=== PATIENT | male | born 1955 | race Caucasian/White ===

== ENCOUNTER → 2024-12-20 | Outpatient (CLI) | payer MEDICARE, BC ==
[2024-12-20 12:26] LABS: Stool Occult Bld Immuno 1 Negative (NEGATIVE)
== END | disposition home or self-care (01) ==
LOC: LAB SHORT 09:36 → LAB 09:36
PROVIDERS: Internal Medicine
DX: D50.9 Iron deficiency anemia, unspecified (principal)
CPT/HCPCS: 82274

== ENCOUNTER 2025-01-03 11:07 | Day surgery (SDC) | payer MEDICARE, BC ==
[~2025-01-03] VITALS: Ht 190.5 cm; Wt 106.0 kg
[2025-01-03] MEDS ORDERED: ALBU90OI INH (11:46)
[2025-01-03] MEDS ORDERED: AMLO5 PO (11:46)
[2025-01-03] MEDS ORDERED: ATOR40TA PO (11:49)
[2025-01-03] MEDS ORDERED: AZELASTINE137 MCG/01 (11:49)
[2025-01-03] MEDS ORDERED: ERGO50000 (11:50)
[2025-01-03] MEDS ORDERED: LOSA50 PO (11:50)
[2025-01-03] MEDS ORDERED: DOXY100 PO (11:50)
[2025-01-03] MEDS ORDERED: OZEMPIC1 MG/0.72 SC (11:51)
[2025-01-03] MEDS ORDERED: PRESERVISION A1 EAC5 PO (11:51)
[2025-01-03 12:03] VITALS: BP 158/95
[2025-01-03] MEDS ORDERED: Midazolam HCl 1MG / ML 2ML Vial ONE ×2 (12:38→13:16)
[2025-01-03] MEDS ORDERED: NS 1,000 ML IV ONE (12:38)
[2025-01-03] MEDS ORDERED: FentaNYL Citrate 50 MCG/ML 2 ML Injection ONE ×2 (12:38→13:16)
[2025-01-03] MEDS ORDERED: NS 250 ML IV ONE (12:47)
--- NOTE | 2025-01-03 14:03 | NUR ---
PT ARRIVED BACK TO RECOVERY ROOM IN [facility]CLINER. LEFT FLANT NEPHTUBE SITE SOFT NO BLEEDING WITH INTACT DRESSING AND DRAIN TUBE TO GRAVITY BAG. PT'S IN ROOM CALL LIGHT IN REACH. PT DRINKING TEA.
--- NOTE | 2025-01-03 14:48 | NUR ---
NO CHANGES TO L FLANK NEPHTUBE SITE. DRAINED TO GRAVITY BAG PINK-TINGED URINE. DISCHARGE INSTRUCTIONS REVIEWED ALL QUESTIONS ANSWERED. 20 G IV DISCONTINUED FROM R FA WITH INTACT CANNULA. PT ESCORTED OUT VIA WHEELCHAIR ESCORT.
== END 2025-01-03 15:00 | disposition home or self-care (01) ==
LOC: MHTC 11:07
DX: N13.2 Hydronephrosis with renal and ureteral calculous obstruction (principal); I10 Essential (primary) hypertension; E78.5 Hyperlipidemia, unspecified; E11.40 Type 2 diabetes mellitus with diabetic neuropathy, unspecified; Z79.899 Other long term (current) drug therapy; Z88.0 Allergy status to penicillin; Z98.84 Bariatric surgery status
CPT/HCPCS: 50432; 76937; 99152; 99153; C1729; C1769; J2250; J3010; J7030; J7050; Q9967